=== PATIENT | female | born 1970 | race Caucasian/White ===

== ENCOUNTER → 2016-11-09 | Outpatient (CLI) | payer OTHER ==
[~2016-11-09] MED LIST: CALC500T83 PO; CEPH500C PO; CETI10TA84 PO; MAGN250T3 PO; MULT-506 PO; ONDA8TAB6 PO; ST JPOW PO; VITAMIN D PO; [UNRECOGNIZED DRUG - OTHER] PO
--- NOTE | 2016-11-09 13:47 | MAMMOGRAPHY REPORT ---
UNILATERAL RIGHT DIGITAL DIAGNOSTIC MAMMOGRAM TOMOSYNTHESIS AND TARGETED RIGHT ULTRASOUND: 11/09/2016 CLINICAL HISTORY: Callback from screening mammogram for right breast asymmetry. TECHNIQUE: Breast tomosynthesis in addition to standard 2D mammography was performed. Spot jn chirag right CC and MLO 2-D and tomosynthesis images were obtained. COMPARISON: Comparison is made to exams dated: 11/01/2016 mammogram, 10/05/2015 mammogram, 4 mammogram, 08/27/2013 mammogram, and 03/18/2012 mammogram - [facility]. BREAST COMPOSITION: The tissue of the right breast is heterogeneously dense, which may obscure smal l masses. FINDINGS: The previously described asymmetry seen within the right breast middle depth on the cc vi ew along the posterior nipple line effaces to a baseline appearance on the spot compression views, w ith appearance of this region similar to prior exams including the 2011 exam. No discrete mammograp hic mass or architectural distortion is noted in this region on the tomosynthesis images. Targeted ultrasound was performed of the right breast at 12:00, 6:00, and subareolar region, in the region of the asymmetry seen on one view only. No suspicious masses or other suspicious sonographic abnormalities are evident. Incidentally noted in the right subareolar breast is an oval anechoic c ircumscribed 4 x 4 mm mass, consistent with a benign cyst. Also noted in the right breast at 6:00 p eriareolar region is an oval circumscribed anechoic mass with a thin internal septation, measuring 5 x 2 x 4 mm. This is consistent with a benign cyst. No sonographic correlate for the mammographic asymmetry is evident. IMPRESSION: ACR BI-RADS CATEGORY 2: BENIGN, TARGETED ULTRASOUND ACR BI-RADS CATEGORY 2: BENIGN The right breast asymmetry effaces to a baseline appearance on the additional views, without corresp onding suspicious sonographic abnormality evident. The asymmetry is benign and most compatible with normal overlapping fibroglandular tissue. There is no mammographic or targeted sonographic evidenc e of malignancy. A 1 year screening mammogram is recommended. The patient has been verbally notifie d of the results. Approximately 10% of breast cancers are not detected with mammography. A negative mammographic repor t should not delay biopsy if a clinically suggestive mass is present. Elsie Ford M.D. ah/:11/09/2016 09:21:14 Pipeline Operator: Diandra ALCOCER)Juli), [facility] letter sent: Normal 1/2 BI-RADS Code: ACR BI-RADS Category 2: Benign Ultrasound BI-RADS: ACR BI-RADS Category 2: Benign
== END | disposition home or self-care (01) ==
LOC: C.MAMM 08:54
PROVIDERS: ATTEND Obstetrics & Gynecology
DX: R92.8 Other abnormal and inconclusive findings on diagnostic imaging of breast (principal)

== ENCOUNTER → 2017-11-02 | Outpatient (CLI) | payer OTHER ==
[~2017-11-02] MED LIST changes: +ONDA-170 PO; -ONDA8TAB6 PO
--- NOTE | 2017-11-06 13:38 | MAMMOGRAPHY REPORT ---
BILATERAL DIGITAL SCREENING MAMMOGRAM TOMOSYNTHESIS WITH CAD: 11/02/2017 CLINICAL HISTORY: Routine screening. Patient has no complaints. TECHNIQUE: Breast tomosynthesis in addition to standard 2D mammography was performed. Current study was also evaluated with a Computer Aided Detection (CAD) system. COMPARISON: Comparison is made to exams dated: 11/01/2016 mammogram, 10/05/2015 mammogram, 09/29/2014 mammogram, 08/27/2013 mammogram, 03/18/2012 mammogram, and 11/09/2016 mammogram - [facility]. BREAST COMPOSITION: The tissue of both breasts is heterogeneously dense, which may obscure small mas ses. FINDINGS: No suspicious masses, calcifications, or areas of architectural distortion are noted in ei ther breast. There has been no significant interval change compared to prior exams. IMPRESSION: ACR BI-RADS CATEGORY 1: NEGATIVE There is no mammographic evidence of malignancy. A 1 year screening mammogram is recommended. The pa tient will receive written notification of the results. Approximately 10% of breast cancers are not detected with mammography. A negative mammographic report should not delay biopsy if a clinically suggestive mass is present. Elsie Ford M.D. ah/:11/02/2017 16:01:00 Director Of Litigation: Carolyn PIERCE(Andrea)(M), [facility] letter sent: Normal 1/2 BI-RADS Code: ACR BI-RADS Category 1: Negative
== END | disposition home or self-care (01) ==
LOC: C.MAMM 08:47
PROVIDERS: ATTEND Obstetrics & Gynecology
DX: Z12.31 Encounter for screening mammogram for malignant neoplasm of breast (principal)